=== PATIENT | male | born 1940 | race Two or more races ===

== ENCOUNTER → 2017-12-04 | Outpatient (CLI) | payer OTHER ==
[~2017-12-04] MED LIST: GLIMEPIRIDE1 MG; METFORMIN HCL500 MG; VASOTEC2.5 MG
== END | disposition home or self-care (01) ==
LOC: RAD 09:23
DX: R06.00 Dyspnea, unspecified (principal); J81.0 Acute pulmonary edema

== ENCOUNTER 2017-12-05 09:31 | Outpatient (CLI) | payer OTHER | END 2017-12-05 14:01 | disposition home or self-care (01) | LOC: TOM 09:31 | DX: J84.10 Pulmonary fibrosis, unspecified (principal) ==

== ENCOUNTER 2017-12-08 13:15 | Outpatient (CLI) | payer OTHER | END 2017-12-08 13:23 | disposition home or self-care (01) | LOC: SONOGRAMA 13:15 | DX: R10.9 Unspecified abdominal pain (principal); N18.3 Chronic kidney disease, stage 3 (moderate); R31.9 Hematuria, unspecified ==

== ENCOUNTER 2017-12-10 08:36 | Inpatient (IN) | payer OTHER ==
[~2017-12-10] VITALS: Ht 175.3 cm; Wt 99.3 kg
[2017-12-17] MEDS ORDERED: Coreg 3.125MG TABLET PO (10:44)
[2017-12-17] MEDS ORDERED: XOPENEX HFA15 GM IH (10:44)
[2017-12-17] MEDS ORDERED: HYDRALAZINE HCL25 MG PO (10:44)
== END 2017-12-17 11:11 | disposition home or self-care (01) | DRG 291 ==
LOC: ER 08:36 → SEC-K 17:56 → MEDJ 17:56
PROC: 4A033R1 Measurement of Arterial Saturation, Peripheral, Percutaneous Approach (ICD-10-PCS; principal; 2017-12-10)
PROC: 3E0F7GC Introduction of Other Therapeutic Substance into Respiratory Tract, Via Natural or Artificial Opening (ICD-10-PCS; 2017-12-10)
PROC: B246ZZZ Ultrasonography of Right and Left Heart (ICD-10-PCS; 2017-12-10)
DX: I13.0 Hypertensive heart and chronic kidney disease with heart failure and stage 1 through stage 4 chronic kidney disease, or unspecified chronic kidney disease (principal); I50.23 Acute on chronic systolic (congestive) heart failure; I16.9 Hypertensive crisis, unspecified; J44.1 Chronic obstructive pulmonary disease with (acute) exacerbation; N18.3 Chronic kidney disease, stage 3 (moderate); I34.0 Nonrheumatic mitral (valve) insufficiency

== ENCOUNTER 2018-05-08 09:47 | Outpatient (CLI) | payer OTHER ==
[~2018-05-08 09:47] MED LIST changes: +Coreg 3.125MG TABLET PO; +HYDRALAZINE HCL25 MG PO; +XOPENEX HFA15 GM IH
== END 2018-05-08 11:42 | disposition home or self-care (01) ==
LOC: MRI 09:47
DX: R47.81 Slurred speech (principal)
CPT/HCPCS: 70551

== ENCOUNTER 2018-05-14 09:13 | Outpatient (CLI) | payer OTHER | END 2018-05-14 10:00 | disposition home or self-care (01) | LOC: NUCLEAR 09:13 | DX: I70.213 Atherosclerosis of native arteries of extremities with intermittent claudication, bilateral legs (principal) ==

== ENCOUNTER 2018-05-15 07:41 | Outpatient (CLI) | payer OTHER | END 2018-05-15 08:30 | disposition home or self-care (01) | LOC: NUCLEAR 07:41 | DX: I87.303 Chronic venous hypertension (idiopathic) without complications of bilateral lower extremity (principal); I87.2 Venous insufficiency (chronic) (peripheral) ==

== ENCOUNTER 2018-05-18 10:21 | Outpatient (CLI) | payer OTHER | END 2018-05-18 17:00 | disposition home or self-care (01) | LOC: TOM 10:21 | DX: R55 Syncope and collapse (principal) ==

== ENCOUNTER 2018-06-04 07:35 | Outpatient (CLI) | payer OTHER | END 2018-06-04 17:05 | disposition home or self-care (01) | LOC: NUCLEAR 07:35 | DX: I50.22 Chronic systolic (congestive) heart failure (principal) | CPT/HCPCS: 78472; 78496; A9560 ==

== ENCOUNTER 2018-07-09 10:31 | Outpatient (CLI) | payer OTHER | END 2018-07-09 10:37 | disposition home or self-care (01) | LOC: MRI 10:31 | DX: M51.26 Other intervertebral disc displacement, lumbar region (principal) | CPT/HCPCS: 72148 ==

== ENCOUNTER → 2018-11-26 | Outpatient (CLI) | payer OTHER | END | disposition home or self-care (01) | LOC: RAD 09:33 | DX: M18.11 Unilateral primary osteoarthritis of first carpometacarpal joint, right hand (principal); Z01.812 Encounter for preprocedural laboratory examination ==